=== PATIENT | female | born 1995 | race Two or more races ===

== ENCOUNTER 2017-01-16 10:39 | Emergency (ER) | payer MEDICAID ==
[~2017-01-16] VITALS: Ht 165.1 cm; Wt 68.9 kg
[2017-01-16] MEDS ORDERED: PRENATA CHEWAB1 EACH PO (10:58)
[2017-01-16] MEDS ORDERED: KEFLEX500 MG ORAL (11:19)
[2017-01-16 11:28] VITALS: BP 131/85
[2017-01-16 11:36] VITALS: BP 131/85
[2017-01-16 11:38] LABS: APPEARANCE,URINE SLIGHTLY CLOUDY; KETONES,URINE NEGATIVE (NEGATIVE); NITRITE,URINE NEGATIVE (NEGATIVE); PH,URINE 8 (4.5-8.0); PROTEIN,URINE NEGATIVE (NEGATIVE); UROBILINOGEN,URINE NORMAL MG/DL (0.0-1.0)
[2017-01-16 11:54] LABS: AMORPHOUS SEDIMENT,UR MODERATE /LPF; BACTERIA,URINE FEW /HPF; LEUKOCYTE ESTERASE ,URINE 2+ (NEGATIVE); SQUAMOUS EPITHELIAL CELL,UR FEW /LPF (NONE/OCC)
--- NOTE | 2017-01-17 13:34 | Emergency Room Report ---
History of Present Illness General Chief Complaint: Flu Like Symptoms Source: Patient Present Illness HPI Patient is a 21 female presented after increased sore throat. Patient gradual onset of symptoms. Patient has having some subjective fever. She denied dysuria. Patient states that she's . The patient had been having some increased nasal congestion. The patient states that she's been had a prior ultrasound for of for this with intrauterine .Patient denies any hematemesis or bloody stools. She reported having a mild headache. She denied any neck stiffness. Allergies: Coded Allergies: No Known Allergies (Unverified , 01/16/17) Patient History Past Medical History: see triage record Last Menstrual Period: 10/13/2017 Now: Yes : 3 Para: 1 Reviewed Nursing Documentation: PMH: Agreed, PSxH: Agreed Nursing Documentation-PMH Past Medical History: No History, Except For Hx Hypertension: Yes Review of Systems All Other Systems: negative except mentioned in HPI Physical Exam Vital Signs Date Time Temp Pulse Resp B/P Pulse Ox O2 Delivery O2 Flow Rate FiO2 01/16/17 10:51 97.9 104 16 131/85 97 Room Air Sp02 EP Interpretation: reviewed, normal General Appearance: normal inspection, well appearing, no apparent distress, alert, GCS 15 Head: atraumatic ENT: hearing grossly normal, normal voice, tonsillar swelling, tonsillar exudate Neck: normal inspection, full range of motion, supple, no bony tend Respiratory: normal inspection, lungs clear, normal breath sounds, no respiratory distress, no retraction, no wheezing Cardiovascular #1: regular rate, rhythm, no edema Gastrointestinal: normal inspection, normal bowel sounds, non tender, soft, no guarding, no hernia Genitourinary: no CVA tenderness Musculoskeletal: normal inspection, back normal, normal range of motion Neurologic: normal inspection, alert, oriented x3, responsive, overage shortage and damage clerk III-XII nml as tested, speech normal Psychiatric: normal inspection, judgement/insight normal, mood/affect normal Skin: normal inspection, normal color, no rash Medical Decision Making Diagnostic Impression: Primary Impression: Tonsillitis ER Course Patient presented for sore throat. Differential diagnosis included but was not limited to meningitis, exudative tonsillitis, retropharyngeal abscess, epiglottitis, strep pharyngitis. Patient appears to have an exudative tonsillitis. Patient was given prescription for Keflex.The patient is advised to follow up with primary care doctor in 1-2 days. Patient is advised to return if any worsening condition or if any changes in status that are concerning. Labs Test 01/16/17 11:00 Urine Color Pale yellow Urine Appearance Slightly cloudy Urine pH 8 (4.5-8.0) Urine Specific Winnie 1.010 (1.005-1.035) Urine Protein Negative (NEGATIVE) Urine Glucose (UA) Negative (NEGATIVE) Urine Ketones Negative (NEGATIVE) Urine Occult Blood 2+ (NEGATIVE) Urine Nitrite Negative (NEGATIVE) Urine Bilirubin Negative (NEGATIVE) Urine Urobilinogen Normal MG/DL (0.0-1.0) Urine Leukocyte Esterase 2+ (NEGATIVE) Urine RBC 2-4 /HPF (0 - 2) Urine WBC 2-4 /HPF (0 - 2) Urine Squamous Epithelial Cells Few /LPF (NONE/OCC) Urine Amorphous Sediment Moderate /LPF (NONE) Urine Bacteria Few /HPF (NONE) Urine HCG, Qualitative Positive Last Vital Signs Date Time Temp Pulse Resp B/P Pulse Ox O2 Delivery O2 Flow Rate FiO2 01/16/17 11:36 97.9 16 131/85 97 Room Air 01/16/17 11:28 104 Status: improved Disposition: HOME, SELF-CARE Condition: Stable Scripts Cephalexin* (KEFLEX*) 500 Mg Capsule 500 MG ORAL Q6H, #28 CAP 0 Refills Prov: Ayden Guillaume 01/16/17 Referrals: NOT CHOSEN IPA/,REFERRING (PCP) Patient Instructions: Tonsillitis Ayden Guillaume Jan 17, 2017 13:34
== END 2017-01-16 11:39 | disposition home or self-care (01) ==
LOC: EMR 11:20
DX: O26.891 Other specified pregnancy related conditions, first trimester (principal); J03.90 Acute tonsillitis, unspecified; Z3A.13 13 weeks gestation of pregnancy; O10.911 Unspecified pre-existing hypertension complicating pregnancy, first trimester
CPT/HCPCS: 81003; 81025; 99283